=== PATIENT | female | born 2000 | race African-American/Black ===

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

== ENCOUNTER 2022-01-13 09:00 | Emergency (ER) | payer BC, OTHER ==
[2022-01-13 11:22] LABS: Bilirubin Negative (Negative); Blood, Urine 1+ (Negative); Clarity Extra Turbid (Clear); Glucose, Urine (Dipstick) Normal (Negative); Ketone, Urine Trace mg/dL (Negative); Leukocyte 500 Leu/uL (Negative); Nitrite Negative (Negative); Protein, Urine (Dipstick) 100 mg/dL (Neg-Trace); Specific Gravity, Urine 1.026 (1.002-1.036); Squamous Epithelial 21-50 HPF (0-3)
[2022-01-13 11:24] LABS: Pregnancy Test - Urine (BHCG) Negative (Negative); Pregu Control Background? CLEAR/WHITE (CLR/WHITE); Pregu Control Bar Appear? YES (CONTROL BAR); Specific Gravity 1.026 (1.002-1.036)
[2022-01-13 11:33] LABS: Bacteria/HPF 2+ HPF (None Seen)
== END 2022-01-13 12:23 | disposition home or self-care (01) ==
LOC: ERS 09:00
DX: A60.04 Herpesviral vulvovaginitis (principal)
CPT/HCPCS: 81003; 81015; 81025; 99283

== ENCOUNTER 2023-01-22 09:17 | Emergency (ER) | payer BC, OTHER | END 2023-01-22 14:37 | disposition home or self-care (01) | LOC: ERS 09:17 | DX: O99.711 Diseases of the skin and subcutaneous tissue complicating pregnancy, first trimester (principal); Z3A.01 Less than 8 weeks gestation of pregnancy | CPT/HCPCS: 99282 ==